=== PATIENT | male | born 1960 | race Caucasian/White ===

== ENCOUNTER 2019-02-16 10:36 | Inpatient (IN) | payer OTHER ==
[~2019-02-16] VITALS: Ht 182.9 cm; Wt 106.4 kg
[2019-04-05] VITALS (14 sets, daily range): BP systolic 92–137; BP diastolic 36–71; PULSE 60–76; TEMP 97.6–98.5
[2019-04-05] MEDS ORDERED: PRINIVIL40 MG PO (06:21)
[2019-04-05] MEDS ORDERED: NATURAL VITAM1000 MG PO (06:22)
[2019-04-05] MEDS ORDERED: VITAMIN D (06:22)
[2019-04-05] MEDS ORDERED: multivitamin capsule PO (06:23)
[2019-04-05] MEDS ORDERED: [UNRECOGNIZED DRUG - OTHER] PO (06:24)
[2019-04-05] MEDS ORDERED: MAGNESIUM250 M1 PO (06:24)
[2019-04-05] MEDS ORDERED: FLOMAX 0.40.4 MG/CAP PO (06:25)
[2019-04-05] MEDS ORDERED: NEURONTIN300 MG/CAP PO (06:25)
[2019-04-05] MEDS ORDERED: VIAGRA100 M1 PO (06:26)
[2019-04-05] MEDS ORDERED: NATURE'S BLEND600 M2 PO (06:27)
[2019-04-05] MEDS ORDERED: OMEGA PO (06:27)
[2019-04-05] MEDS ORDERED: PRINIVIL20 MG PO (06:30)
[2019-04-05] MEDS ORDERED: PROSCAR 5MG5 MG PO (06:32)
--- NOTE | 2019-04-05 11:15 | NUR ---
returned to room per bed from PACU, awake and alert, IV infusing and placed on pump at 125ml/hr, abdominal dressing and dressing to unruly drains are all CD&I, unruly drains to low intermittent suction with bloody drainage in tubing but nothing in cannister, pack catheter patent draining clear light ari urine, epidural intact and infusing at 5ml/hr, denies needs at this time, family at bedside
--- NOTE | 2019-04-05 11:30 | NUR ---
provided ice chips and takes and toelrates well
--- NOTE | 2019-04-05 11:45 | NUR ---
rests between checks, full assessment completed, see interventions for further info,
--- NOTE | 2019-04-05 12:30 | NUR ---
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
--- NOTE | 2019-04-05 13:15 | NUR ---
resting in bed looking at his phone, urine in tubing remains light ari, pack emptied and output is 70ml in the last 2 hours
--- NOTE | 2019-04-05 14:15 | NUR ---
dressing remains with shadowing of bloody drainage, and unruly drains with bloody drainage in tubing but nothing in reservoir, catheter care provided and tolerated well, urine remains adequate at 30ml this hour and is clear light ari
--- NOTE | 2019-04-05 15:15 | NUR ---
watching TV, anesthesia provider in and adjusted epidural to 6ml/hr, dressing remains the same and unruly drains
--- NOTE | 2019-04-05 17:20 | NUR ---
pack with light yellow urine in tubing, patient denies needs
--- NOTE | 2019-04-05 18:51 | NUR ---
bedside shift report given to VIDA Blancas
--- NOTE | 2019-04-05 21:30 | NUR ---
Assisted patient to edge of bed, then to standing at bedside. Epidural catheter intact to back. Left Barbara drains with bloody drainage to LIS. Midline incision with shadowing. Patient moves up in bed then puts legs back in bed, does with moderate pain. SCD's back on patient. IV site to left hand intact without redness, has SL to left upper arm without redness or swelling. Is alert and oriented x4. Gusman catheter with yellow urine, catheter care provided.
[2019-04-06] VITALS (7 sets, daily range): BP systolic 104–137; BP diastolic 56–60; PULSE 55–62; TEMP 97.7–98.5
--- NOTE | 2019-04-06 04:30 | NUR ---
Patient reports passing gas x3. Provided clear liquids at this time.
--- NOTE | 2019-04-06 09:10 | NUR ---
Initial visit; Patient thanked Dobby Looms Pegger for looking in on him and letting him know of the availability of spiritual care. Patient declined at this time.
--- NOTE | 2019-04-06 12:19 | NUR ---
Patient just got done with a walk with B[employer]QU[employer] M[employer]DER. He did well. rounded this am. Orders obtained. He sat up in chair for breakfast. Barbara drain cut & bagged. Midline incisions drg changed, eve intact. He reports passing flatus. abdomen soft. He had a light breakfast. Epidural for pain mangement, epidural site CDI. Gusman education provided. Gusman output adequate peach in color. Int to [place] DC. IVF per orders. Scds. Will monitor.
--- NOTE | 2019-04-06 16:25 | NUR ---
SW met with patient to discuss discharge planning. Patient lives independently in [place]. His PCP is Bob Ramos APRN and [facility] Patient does not have any anticipated discharge needs at this time.
--- NOTE | 2019-04-06 18:40 | NUR ---
Patient doing better. He was up in the bathroom & had episode of nausea. He did not have a Bm in bathroom, but experiencing some gas pain. Zofran given. Patient ambulated the halls. Gusman to DD, adequate urine output. Barbara drain to DD. Midline with gauze & tape. Iv to int.
--- NOTE | 2019-04-07 02:11 | NUR ---
Patient resting well, states he is very tired. Epidural in place. States pain is 5/10 to upper abdomen, and its gas-like pains. Patient educated that this is normal. Midline incision remains free from drainage. Patient resting with eyes closed at this time. Will continue to monitor.
[2019-04-07 04:37] VITALS: BP 118/67; PULSE 63; TEMP 98.2
[2019-04-07 07:38] VITALS: BP 126/71; PULSE 65; TEMP 98
--- NOTE | 2019-04-07 11:45 | NUR ---
Patient was indisposed.
[2019-04-07 11:46] VITALS: BP 120/70; PULSE 63; TEMP 97.8
[2019-04-07 15:24] VITALS: BP 113/59; PULSE 70; TEMP 97.5
--- NOTE | 2019-04-07 18:00 | NUR ---
Incisional pain controlled with epidural. Complained of gas pains. Belching, but no flatus. Dulcolax suppository given. Ambulated in halls x 3 this shift. Zofran given for c/o nausea x one. Drinking water. Minimal food intake.
[2019-04-07 20:00] VITALS: TEMP 98.9
[2019-04-07 21:08] VITALS: BP 116/62; PULSE 70; TEMP 98.9
[2019-04-08] VITALS (7 sets, daily range): BP systolic 95–125; BP diastolic 51–62; PULSE 65–75; TEMP 97.6–98.3
--- NOTE | 2019-04-08 03:23 | NUR ---
Patient complains of a "full feeling" in his abdomen. Patient states he has been belching, but not any gas yet. Patient expresses frustration because he is "walking and chewing his gum". Education provided on post-op ileus. Patient stated around 0030 that he felt a little better. Epidural providing adequate pain relief. Will continue to monitor patient.
--- NOTE | 2019-04-08 06:18 | NUR ---
Patient noted to have a large loose bowel movement this morning. When asked if he feels any better he states, "eh.". He verbalized that he hopes he goes home today. Denies any needs.
--- NOTE | 2019-04-08 18:00 | NUR ---
Ambulatory in halls with standby assist. Mild nausea at times. Had one loose stool. Epidural was dc'd. Pain controlled with Percocet. Barbara drains dc'd. Patient tolerated procedure well. Emptied urinary leg bag by self.
--- NOTE | 2019-04-08 20:15 | NUR ---
Pt. sitting up in bed watching tv at this time. Pt. is A&OX3, assessment complete. INT to lt. hand patent. Pt. reports pain at a 3 on pain scale at this time. Gusman catheter to DD, with ari clear urine. Pt. does have some mild bleeding from penis after attempting to have a BM. Dressing to abd. midline cdi. Pt. denies further needs at this time. Call light within reach.
--- NOTE | 2019-04-08 22:25 | NUR ---
PT NO LONGER ON EPIDURAL THEREFORE, 02 CHECK WAS COMPLETED OUT.
[2019-04-09 04:00] VITALS: BP 121/65; PULSE 84; TEMP 98.1
[2019-04-09 06:59] LABS: BASO % 0.3 % (0.0-2.0); EOS # 0.4 (0.0-0.7); EOS % 3.2 % (0-4.0); GRAN # 9.3 (1.4-6.5); GRAN % 69.6 % (42.2-75.2); LYMPH # 2.1 (1.2-3.4); LYMPH % 15.6 % (20.0-51.0); MEAN CELL VOLUME 89 fl (80.0-100.0); MEAN CORPUSCULAR HEMOGLOBIN 31 pg (27.0-31.0); MEAN CORPUSCULAR HGB CONC 34 g/dl (33.0-37.0); MONO # 1.4 (0.1-0.6); MONO % 10.8 % (1.7-9.3); PLATELET COUNT 316 K/mm3 (130-400); RED BLOOD COUNT 3.26 M/mm3 (4.20-5.60)
[2019-04-09 07:19] LABS: HEMATOCRIT 29.1 % (42.0-52.0)
[2019-04-09 07:20] LABS: CALCIUM 8.9 mg/dL (8.4-10.2); CREATININE, serum 1.35 (0.66-1.25); POTASSIUM 3.8 mmol/L (3.4-5.0)
--- NOTE | 2019-04-09 07:45 | NUR ---
Patient resting in bed. Report being very tired not sleeping well. He reports increased abdominal pain. Percocet per orders. Patient Denies passing flatus this am, Refusing Dulcolax suppository-states his stools were bloody yesterday. His abdomen is soft, bowels are quiet. Gauze to midline & prior unruly drain site. Int to L.hand. Gusman to DD, urine output yellow & clear. Will try and let him get some rest.
[2019-04-09 08:31] VITALS: BP 99/53; PULSE 64; TEMP 98
--- NOTE | 2019-04-09 08:35 | NUR ---
Dr.Rosso sharp, orders obtained. Eriberto Urena assisted with shower.
--- NOTE | 2019-04-09 09:45 | NUR ---
Patient feeling much better after shower, pain much improved. Ivf started per orders. Patient is slowing eating a thai muffin, i advised him to really take it slow & stop with any nausea.
--- NOTE | 2019-04-09 11:35 | NUR ---
First visit from the special education inclusion teacher. No needs right now.
[2019-04-09 11:38] VITALS: BP 121/55; PULSE 71; TEMP 97.9
--- NOTE | 2019-04-09 11:46 | NUR ---
Patient up and ambulated the halls, entire 3rd floor & he did well. Overall spirits are much improved. He is going to order a light lunch. He reports belching, no passing flatus or BM
--- NOTE | 2019-04-09 14:31 | NUR ---
checked in again on patient, no new orders. Patient continues to feel bloated,distended. significant other at bedside.
[2019-04-09 16:09] VITALS: BP 113/61; PULSE 71; TEMP 98.3
--- NOTE | 2019-04-09 16:22 | NUR ---
Patient up ambulating the 3rd floor. Reports toradol was adequate for pain relief. Gusman care provided & taught to patient significant other.
--- NOTE | 2019-04-09 19:02 | NUR ---
Patient once again reminded to take it slowly with food, he is having a roll for dinner. bedside report to arthur rn
--- NOTE | 2019-04-09 19:49 | NUR ---
Patient rating pain to abdomen 6/10, medicated with Toradol 15mg IV at this time. Abdomen is distended, soft. Passing no flatus, bowel sounds very hypoactive. Denies nausea. IVF to right hand without redness or swelling. [place] intact to midline incision. Does want to try the dulcolax suppository tonight.
[2019-04-09 20:37] VITALS: BP 121/84; PULSE 75; TEMP 98.5
--- NOTE | 2019-04-09 20:50 | NUR ---
Patient reports no relief from pain to abdomen, medicated with Dilaudid at this time. Takes HS meds including a dulcolax suppository at this time.
--- NOTE | 2019-04-09 22:00 | NUR ---
Medicated with Ambien 5mg for sleep. Reports good relief of abdominal pain with the Dilaudid.
[2019-04-09 23:44] VITALS: BP 142/52; PULSE 70; TEMP 98.6
--- NOTE | 2019-04-10 02:08 | NUR ---
Patient resting quietly to right side.
--- NOTE | 2019-04-10 04:36 | NUR ---
Patient has moderate soft brown stool with gas. Reports feeling less bloated, bowel sounds more active. Patient feels more positive about his recovery. Medicated with Dilaudid 0.5mg IVP for residual pain 3/10 to back and incision.
[2019-04-10 04:55] VITALS: BP 118/55; PULSE 67; TEMP 98.1
[2019-04-10 07:49] VITALS: BP 114/58; PULSE 71; TEMP 97.8
--- NOTE | 2019-04-10 08:30 | NUR ---
Patient in bed resting. Alert and oriented x 3. Shift assessment complete. Midline incision with edges well approximated. Gusman to dependent drainage with clear yellow urine present in bag. IV fluids infusing via pump. Denies further needs at this time.
--- NOTE | 2019-04-10 09:43 | NUR ---
BONNIE met with the patient to review discharge plan. The patient reports that he may be ready to discharge tomorrow, 04/11. He states that he still plans to return home and that his significant other, Olga, will provide him transportation. No additional needs at this time.
[2019-04-10 11:36] VITALS: BP 116/65; PULSE 68; TEMP 98.4
[2019-04-10 15:38] VITALS: BP 121/68; PULSE 66; TEMP 97.7
--- NOTE | 2019-04-10 18:30 | NUR ---
Patient has done well this afternoon. Has had several BMs, x4, throughout the day. Gusman maintained to dependent drainage with clear yellow urine present in bag. Urine has turned red/bloody after ambulating, clears up after rest. Patient having bladder spasms this afternoon, PRN dose of levsin given. Denies pain or further needs at this time. Will report off to shiftman.
--- NOTE | 2019-04-10 20:36 | NUR ---
Patient in bed, had been up in chair for dinner. Reports several BM's today and still wants to have the Dulcolax suppository tonight. Abdomen distened and soft, bowel sounds active x4. Gusman cath care provided, noted blood on tubing, urine is yellow at this time, turns pink with activity. [place] intact to abdomen, reports pain 3/10 to left abdomen, Percocet 2 tabs given with HS meds. SL to left hand. Patient anxious to go home tomorrow.
[2019-04-10 20:44] VITALS: BP 133/59; PULSE 74; TEMP 98.4
--- NOTE | 2019-04-10 22:00 | NUR ---
Patient reports another BM. No concerns offered.
[2019-04-10 23:34] VITALS: BP 126/57; PULSE 74; TEMP 98.2
[2019-04-11 04:22] VITALS: BP 112/65; PULSE 62; TEMP 98.1
--- NOTE | 2019-04-11 06:00 | NUR ---
Medicated with Percocet 1 tab for incisional pain and scheduled Cipro at this time. Reports passing gas and feeling better.
--- NOTE | 2019-04-11 07:07 | NUR ---
bedside report to Sandy MCPHERSON
[2019-04-11 07:46] VITALS: BP 123/47; PULSE 64; TEMP 98.2
--- NOTE | 2019-04-11 09:54 | NUR ---
Patient sitting up in chair. He is anticipating discharge home today. Was up to bathroom had a BM. Did well with breakfast. Mnimal complaints of pain, but wanting to keep pain manged prior to discharge so one tab percocet per request. Midline eve intact. Gusman to DD. Gusman care provided. Kelvin brooks.
[2019-04-11 11:56] VITALS: BP 135/54; PULSE 69; TEMP 97.7
--- NOTE | 2019-04-11 13:52 | NUR ---
Patient ready for discharge. We reviewed all discharge instructions, he denies questions or concerns. Int DC. We discussed activity & diet restrictions. Home med list & medication safety reviewed. Urology office to call for a follow up appt. Incision care, pack care & signs & symptoms to call doctor about discussed. Patient ambulated out with all belongings, significant other taking him home.
== END 2019-04-11 13:55 | disposition home or self-care (01) | DRG 707 ==
LOC: SURG 03-22 07:30 → INPTSU 04-05 05:18 → SURG 04-05 07:30
PROVIDERS: Urology; ADMIT Urology
PROC: 0VT30ZZ Resection of Bilateral Seminal Vesicles, Open Approach (ICD-10-PCS; 2019-04-05)
PROC: 0VT00ZZ Resection of Prostate, Open Approach (ICD-10-PCS; principal; 2019-04-05 07:30)
DX: C61 Malignant neoplasm of prostate (principal); K56.7 Ileus, unspecified; I10 Essential (primary) hypertension; F41.9 Anxiety disorder, unspecified; Z87.891 Personal history of nicotine dependence
CPT/HCPCS: A9284; J0690; J1100; J1170; J1885; J2250; J2405; J2704; J3010; J3480; J7120

== ENCOUNTER 2024-01-17 10:07 | Day surgery (SDC) | payer OTHER ==
[~2024-01-17] VITALS: Ht 182.9 cm; Wt 119.9 kg
[~2024-01-17 10:07] MED LIST: FLOMAX 0.40.4 MG/CAP PO; LR 1,000 ML IV SCH; MAGNESIUM250 M1 PO; NATURAL VITAM1000 MG PO; NATURE'S BLEND600 M2 PO; NEURONTIN300 MG/CAP PO; OMEGA PO; Ondansetron 4 MG/2 ML VIAL IV PRN; PRINIVIL20 MG PO; PRINIVIL40 MG PO; PROSCAR 5MG5 MG PO; VIAGRA100 M1 PO; VITAMIN D; [UNRECOGNIZED DRUG - OTHER] PO; multivitamin capsule PO
[2024-01-17] MEDS ORDERED: MASON NATURAL1200 MG PO (10:25)
[2024-01-17] MEDS ORDERED: Lidocaine PF 2% (20 MG/ML) 5 ML VIAL ONE (11:09)
[2024-01-17] MEDS ORDERED: Glycopyrrolate 0.2 MG/ML 1 ML VIAL ONE (11:14)
[2024-01-17 11:40] VITALS: BP 125/79; PULSE 58; TEMP 96.6
[2024-01-17 11:45] VITALS: BP 129/83; PULSE 59
[2024-01-17 12:00] VITALS: BP 140/81; PULSE 54
--- NOTE | 2024-01-17 12:27 | NUR ---
1140- PATIENT RETURNS TO [facility] VIA CART. PT AWAKE AND ALERT. RESPIRATIONS UNLABORED. AMBULATED TO RECLINER CHAIR WITH 2:1 SBA. PT DENIES NAUSEA OR ABDOMINAL PAIN. HOOKED UP TO MONITOR AND VS OBTAINED. CALL LIGHT AT SIDE. 1147- PATIENT TOLERATING APPLE JUICE AND MUFFIN WITHOUT NAUSEA OR ABD PAIN. 1203- DR. ANDRES IN ROOM SPEAKING WITH PATIENT. 1210- D/C INSTRUCTIONS REVIEWED WITH PATIENT. PT VERBALIZED UNDERSTANDING AND A COPY OF INSTRUCTIONS PROVIDED IN D/C FOLDER. 1217- PATIENT DRESSES SELF. 1227- PATIENT DISCHARGED FROM UNIT VIA W/C TO A PERSONAL VEHICLE. PT LEFT HOSPITAL IN STABLE CONDITION.
[2024-01-17 14:26] VITALS: BP 136/80; PULSE 58; TEMP 98
--- NOTE | 2024-01-17 14:29 | NUR ---
1013 Patient is ambulatory to [facility] with a steady gait, breathing even and unlabored. Patient is alert and oriented. Consents reviewed and signed by patient. IV established. LR infusing via gravity at KVO.
== END 2024-01-17 12:27 | disposition home or self-care (01) ==
LOC: SDCO 10:07
DX: Z12.11 Encounter for screening for malignant neoplasm of colon (principal); D12.5 Benign neoplasm of sigmoid colon; D12.8 Benign neoplasm of rectum; C79.51 Secondary malignant neoplasm of bone; F17.210 Nicotine dependence, cigarettes, uncomplicated; Z85.46 Personal history of malignant neoplasm of prostate
CPT/HCPCS: J2704; J7120